=== PATIENT | male | born 1975 | race Caucasian/White ===

== ENCOUNTER 2017-05-23 15:01 | Emergency (ER) | payer SELFPAY ==
--- NOTE | 2017-05-23 15:22 | ED Physician Chart ---
Chief Complaint/HPI - Patient Information Date Seen:: 05/23/17 Time Seen:: 15:10 Chief Complaint:: DRUG ABUSE History of Present Illness:: THIS IS A 42 YO MALE BIB EMS AND IS INTOXICATED WITH ALCOHOL STATING THAT HE DRANK 16 SHOT VODKA TODAY. HE ALSO STATES HE TOOK A LARGE DOSE OF METHAMPHETAMINES TODAY. HE DENIES HAVING ANY MEDICAL PROBLEMS BUT HAS HAD PSYCH PROBLEMS. Allergies:: Allergies Allergy/AdvReac Type Severity Reaction Status Date / Time No Known Allergies Allergy Verified 05/23/17 15:09 Vitals:: Vital Signs - 8 hr 05/23/17 15:01 Temp 98.4 F HR 106 RR 17 BP 160/93 O2 Sat % 95 Historian:: Patient, EMS Review:: Nurse's Note Reviewed Review of Systems - Review of Systems General/Constitutional: No fever, No chills, No weight loss, No weakness, No diaphoresis, No edema, No loss of appetite, Other (THIS IS UNABLE TO GIVE A REVIEW OF SYSTEMS.) Skin: No skin lesions, No rash, No bruising Head: No headache, No light-headedness Eyes: No loss of vision, No pain, No diplopia ENT: No earache, No nasal drainage, No sore throat, No tinnitus Neck: No neck pain, No swelling, No thyromegaly, No stiffness, No mass noted Cardio Vascular: No chest pain, No palpitations, No PND, No orthopnea, No edema Pulmonary: No SOB, No cough, No sputum, No wheezing GI: No nausea, No vomiting, No diarrhea, No pain, No melena, No hematochezia, No constipation, No hematemesis G/U: No dysuria, No frequency, No hematuria Musculoskeletal: No bone or joint pain, No back pain, No muscle pain Endocrine: No polyuria, No polydipsia Psychiatric: No prior psych history, No depression, No anxiety, No suicidal ideation Hematopoietic: No bruising, No lymphadenopathy Allergic/Immuno: No urticaria, No angioedema Neurological: No syncope, No focal symptoms, No weakness, No paresthesia, No headache, No seizure, No dizziness, No confusion, No vertigo Past Medical History - Past Medical History Obtainable: Yes Past Medical History: Other (MENTAL DISORDER.) Family History: None Social History: Smoker, Alcohol, Illicit Drug Use, Employed ([employer]) Surgical History: other (RIGHT LEG SURGERY) Psychiatricy History: Depression, Schizophrenia Medication: Reviewed Physical Exam - Physical Examination General/Constitutional: Well-developed, well-nourished, Alert, No distress, GCS 15, Ambulatory Other Gen/Cons comments:: LETHARGIC BUT COOPERATIVE AND SMELLS LIKE ALCOHOL Head: Atraumatic Eyes: Lids, conjuctiva normal, PERRL, EOMI Skin: Nl inspection, No rash, No skin lesions, No ecchymosis, Well hydrated, No lymphadenopathy ENMT: External ears, nose nl, Nasal exam nl, Lips, teeth, gums nl Neck: Nontender, Full ROM w/o pain, No JVD, No nuchal rigidity, No bruit, No mass, No stridor Respiratory: Nl effort/Exclusion, Clear to Auscultation, No Wheeze/Rhonchi/Rales Cardio Vascular: RRR, No murmur, gallop, rubs, NL S1 S2 GI: No tenderness/rebounding/guarding, No organomegaly, No hernia, Normal BS's, Nondistended, No mass/bruits, No McBurney tenderness : No CVA tenderness Extremities: No tenderness or effusion, Full ROM, normal strength in all extremities, No edema, Normal digits & nails Neuro/Psych: Alert/oriented, DTR's symmetric, Normal sensory exam, Normal motor strength, Judgement/insight normal, Mood normal, Normal gait, No focal deficits Misc: normal gait, Normal back, No paraspinal tenderness ED Septic Shock - . Is Septic Shock (SBP<90, OR Lactate>4 mmol\L) present?: No - <6hrs of presentation: Vital Signs: Vital Signs - 8 hr 05/23/17 15:01 Temp 98.4 F HR 106 RR 17 BP 160/93 O2 Sat % 95
[2017-05-23] MEDS ORDERED: Haloperidol Lactate 5 mg/mL 1mL Vial ONE (15:28)
[2017-05-23] MEDS ORDERED: Haloperidol Lactate 5 mg/mL 1mL Vial IVP ONE (15:30)
[2017-05-23] MEDS ORDERED: Sodium Chloride 0.9% 1,000 ML IV ONE (15:31)
[2017-05-23 15:42] LABS: % BASOPHILS 0.2 % (0.0-2.0); % EOSINOPHILS 1.3 % (0.0-5.0); % LYMPHOCYTES 39.4 % (20.0-50.0); % MONOCYTES 6.4 % (2.0-10.0); % NEUTROPHILS 52.7 % (40.0-80.0); HEMATOCRIT 47.5 % (39.0-49.0); HEMOGLOBIN 15.9 gm/dL (13.2-17.3); MEAN CELL VOLUME 94.8 fl (80-99); MEAN CORPUSCULAR HEMOGLOBIN 31.8 pg (26.0-30.0); MEAN CORPUSCULAR HGB CONC 33.5 pg (28.0-36.0); MEAN PLATELET VOLUME 7.1 fl; NEUTROPHILE ABSOLUTE 5.4 Th/cmm (1.8-8.0); PLATELET COUNT 358 Th/cmm (150-400); RED BLOOD COUNT 5.02 Mil/cmm (4.30-5.70); RED CELL DISTRIBUTION WIDTH 13.8 % (11.5-20.0); WHITE BLOOD COUNT 10.1 Th/cmm (4.8-10.8)
[2017-05-23 15:56] LABS: INR 0.93 (0.5-1.4); PROTHROMBIN TIME (TEST) 9.7 SECONDS (9.5-11.5)
[2017-05-23 15:58] LABS: ALB/GLOB RATIO 1.6 (1.0-1.8); ALKALINE PHOSPHATASE 85 U/L (34-104); ANION GAP 9.7 (7.0-16.0); BILIRUBIN,TOTAL 0.2 mg/dL (0.3-1.0); BUN - UREA NITROGEN 8 mg/dL (7-25); BUN/CREATININE RATIO 11.4; CALCIUM SERUM 8.9 mg/dL (8.6-10.3); CARBON DIOXIDE 25.4 mEq/L (21.0-31.0); CHLORIDE 109 mEq/L (98-107); CREATININE - SERUM 0.7 mg/dL (0.7-1.3); GLUCOSE 105 mg/dL (70-105); POTASSIUM SERUM 4.1 mEq/L (3.5-5.1); SGOT 18 U/L (13-39); SGPT/ALT 16 U/L (7-52); SODIUM SERUM 140 mEq/L (136-145)
[2017-05-23 15:59] LABS: CHOLESTEROL 160 mg/dL (<200); TRIGLYCERIDES 213 mg/dL (<150)
[2017-05-23 16:53] LABS: URINE BILIRUBIN NEGATIVE (NEGATIVE); URINE BLOOD NEGATIVE (NEGATIVE); URINE GLUCOSE (UA) NEGATIVE (NEGATIVE); URINE KETONE NEGATIVE (NEGATIVE); URINE PH 6.5 (4.6 - 8.0); URINE PROTEIN 30 mg/dL (NEGATIVE); URINE UROBILINOGEN 0.2 E.U./dL (0.2 - 1.0)
[2017-05-23 17:06] LABS: AMPHETAMINE URINE NEGATIVE (NEGATIVE); BARBITURATES URINE NEGATIVE (NEGATIVE); METHADONE URINE NEGATIVE (NEGATIVE)
[2017-05-23 17:07] LABS: URINE AMORPHOUS SEDIMENT FEW URATES (NONE SEEN); URINE BACTERIA FEW /hpf (NONE SEEN); URINE COLOR YELLOW; URINE EPITHELIAL CELLS RARE /lpf (FEW); URINE RBC NONE SEEN /hpf (0-5); URINE WBC 0-2 /hpf (0-5)
== END 2017-05-23 23:30 | disposition left against medical advice (07) ==
LOC: ER 15:01
DX: F10.129 Alcohol abuse with intoxication, unspecified (principal); F10.20 Alcohol dependence, uncomplicated; F32.9 Major depressive disorder, single episode, unspecified; F20.9 Schizophrenia, unspecified
CPT/HCPCS: 99285; 96374; 96375; 93005; 84484; 36415; 80307; 84443; 86592; 85025; 85610; 85730; 81001; 80320 ×2; 80053; 80061; J2060; J1200; J1630; J7030